=== PATIENT | male | born 1990 | race African-American/Black ===

== ENCOUNTER 2021-08-22 14:49 | Emergency (ER) | payer MEDICAID ==
[~2021-08-22] VITALS: Ht 167.6 cm; Wt 61.0 kg
[2021-08-22] MEDS ORDERED: HYDROCODONE/ACETAMINOPHEN 5/325MG TABLET PO ONE ×2 (15:15→17:15)
[2021-08-22] MEDS ORDERED: LIDOCAINE HCL 1% 10 MG/ML 10ML VIAL IJ ONE (15:45)
[2021-08-22] MEDS ORDERED: HYDR-4001 MT (17:08)
[2021-08-22 17:39] VITALS: BP 122/77
== END 2021-08-22 17:46 | disposition home or self-care (01) ==
LOC: ER 14:49
DX: S52.252B Displaced comminuted fracture of shaft of ulna, left arm, initial encounter for open fracture type I or II (principal); X93.XXXA Assault by handgun discharge, initial encounter; Y93.89 Activity, other specified; Y92.488 Other paved roadways as the place of occurrence of the external cause
CPT/HCPCS: 73090; 99284; J3490; Z7610; A4565